=== PATIENT | female | born 1960 | race Asian ===

== ENCOUNTER 2020-09-01 | Outpatient (REF) | payer OTHER, SELFPAY ==
[2020-09-02 12:11] LABS: FIT1 NEGATIVE (NEGATIVE); FIT2 NEGATIVE (NEGATIVE)
[2020-09-02 12:12] LABS: FIT Int Ctl YES
== END 2020-09-01 00:01 | disposition home or self-care (01) ==
LOC: HO.LNP
PROVIDERS: Visit Provider Internal Medicine
DX: Z12.11 Encounter for screening for malignant neoplasm of colon (principal)
CPT/HCPCS: 82274

== ENCOUNTER 2020-09-02 07:56 | Outpatient (REF) | payer OTHER, SELFPAY ==
[2020-09-02 09:01] LABS: MANUAL DIFF FLAG NO
[2020-09-02 09:04] LABS: Basophils Absolute Auto 0.1 X10*3/uL (0.0-0.2); Basophils Percent Auto 1.8 % (0-2); Eosinophils Absolute Auto 0.4 X10*3/uL (0.0-0.4); Eosinophils Percent Auto 10.9 % (0-4); Hematocrit 38.8 % (37-47); Hemoglobin 12.9 g/dl (12.0-16.0); Imm Gran Abs Auto 0.01 X10*3/uL (0.00-0.03); Imm Gran Pct Auto 0.3 % (0.0-0.4); Lymphocytes Absolute Auto 1.7 X10*3/uL (1.2-4.9); Lymphocytes Percent Auto 44.5 % (20-40); Mean Corpuscular HGB Conc 33.2 g/dl (31.0-35.0); Mean Corpuscular Hemoglobin 29.7 pg (27.0-33.0); Mean Corpuscular Volume 89.2 fL (80-98); Mean Platelet Volume 8.6 fL (9.4-12.3); Monocytes Absolute Auto 0.4 X10*3/uL (0.1-1.2); Monocytes Percent Auto 9.6 % (2-11); Neutrophils Absolute Auto 1.3 X10*3/uL (2.0-8.3); Neutrophils Percent Auto 32.9 % (45-73); Platelet Count 310 X10*3/uL (160-400); Red Blood Count 4.35 X10*6/uL (4.20-5.50); Red Cell Distribution Width 11.9 % (11.0-16.0); White Blood Count 3.8 X10*3/uL (4.8-10.8)
[2020-09-02 09:34] LABS: Alanine Aminotransferase 24 U/L (0-31); Albumin Level 4.5 g/dL (3.5-5.0); Alkaline Phosphatase 71 U/L (39-117); Anion Gap 13 (12-20); Aspartate Amino Transferase 25 U/L (5-31); Bilirubin Total 0.9 mg/dL (0.0-1.0); Blood Urea Nitrogen 8 mg/dL (9-16); Calcium 9.5 mg/dL (8.4-10.2); Carbon Dioxide 28 mmol/L (22-29); Chloride 105 mmol/L (96-108); Cholesterol 256 mg/dL; Estimated Glomerular Filt Rate > 60; Glucose Fasting 108 mg/dL (60-99); HDL Cholesterol 52 mg/dL; LDL Cholesterol Calculated 173 mg/dl; Sodium 142 mmol/L (135-145); Total Protein 8.3 g/dL (6.5-8.0); Triglycerides 159 mg/dL
[2020-09-02 09:57] LABS: TSH reflex Free T4 1.99 uIU/mL (0.32-4.0); Vitamin D 25-OH Total 35.1 ng/mL (>30)
== END 2020-09-02 07:57 | disposition home or self-care (01) ==
LOC: HO.LAB 07:56
PROVIDERS: Visit Provider Internal Medicine
DX: Z00.01 Encounter for general adult medical examination with abnormal findings (principal); I10 Essential (primary) hypertension
CPT/HCPCS: 36415; 80053; 80061; 82306; 84443; 85025

== ENCOUNTER 2022-12-31 06:36 | Outpatient (REF) | payer OTHER, SELFPAY ==
[2022-12-31 12:12] LABS: Alanine Aminotransferase 40 U/L (0-31); Albumin Level 4.2 g/dL (3.5-5.0); Alkaline Phosphatase 67 U/L (39-117); Anion Gap 12 (12-20); Aspartate Amino Transferase 32 U/L (5-31); Bilirubin Total 0.7 mg/dL (0.0-1.0); Blood Urea Nitrogen 12 mg/dL (9-16); Calcium 9.5 mg/dL (8.4-10.2); Carbon Dioxide 26 mmol/L (22-29); Chloride 107 mmol/L (96-108); Cholesterol 240 mg/dL; Estimated Glomerular Filt Rate > 60; Glucose Fasting 143 mg/dL (60-99); HDL Cholesterol 43 mg/dL; LDL Cholesterol Calculated 161 mg/dl; Potassium 3.7 mmol/L (3.3-5.1); Sodium 141 mmol/L (135-145); Total Protein 8.3 g/dL (6.5-8.0); Triglycerides 183 mg/dL
[2022-12-31 12:13] LABS: TSH reflex Free T4 2.38 uIU/mL (0.32-4.0)
== END 2022-12-31 06:37 | disposition home or self-care (01) ==
LOC: HO.HMGCLDS 06:36
PROVIDERS: PCP Internal Medicine; Visit Provider Internal Medicine
DX: I10 Essential (primary) hypertension (principal); E78.5 Hyperlipidemia, unspecified; R73.01 Impaired fasting glucose; Z90.09 Acquired absence of other part of head and neck
CPT/HCPCS: 36415; 80053; 80061; 82306; 84443

== ENCOUNTER 2023-08-13 10:44 | Outpatient (AMB) | payer BC, SELFPAY ==
--- NOTE | 2023-08-13 11:03 | A.OFFPC_ITS ---
Vital Signs 08/13/23 11:04 Height 5 ft 2 in Weight 152 lb 4 oz BMI 27.8 BP 150/88 H Blood Pressure Location Rt brachial Position Sitting Pulse 57 Pulse Source Pulse Oximeter Pulse Oximetry (%) 98 Oxygen Delivery Method Room Air Intake Visit Reasons: ffup IFG , Lipids, Htn Intake Note: Pt is here to follow up for her HTN Allergies No Known Allergies [No Known Allergies*] Allergy (Verified 08/13/23 11:16) Medication List - Last Reconciled 08/13/23 by Michelle Barriga MD cetirizine 10 mg PO BEDTIME lisinopril 5 mg PO DAILY sodium chloride 0.65% (Saline Nasal) 1 spray intranasal BID PRN Tobacco use date assessed: 08/13/23 Dental Screening Dental Screen Date: 08/13/23 Did you have a dental visit in the last 12 months?: No Did you have a dental problem in the last 6 months where you did not have access to dental care?: No Was dental information given to patient?: No HPI ffup IFG , Lipids, Htn HPI Details 62-year-old lady with history of elevate d fasting glucose, hypertension, and hyperlipidemia, here today for follow-up. Currently taking lisinopril 5 mg once a day, blood pressure however still not at goal of less than 130/80 . States that she has been under lot of stress lately, has been overeating and has not been doing her regular exercise. Has just started walking again for exercise a week ago. [facility] Medical History (Updated 08/13/23 @ 11:49 by Michelle Barriga MD) Type 2 diabetes mellitus without complication, with no history of insulin use Shoulder pain, right Bilateral finger arthralgia Impaired fasting glucose Dyslipidemia Refused influenza vaccine Papanicolaou smear declined Colonoscopy refused Mammogram declined Allergic rhinitis Essential hypertension Annual visit for general adult medical examination with abnormal findings Surgical History History of thyroidectomy Family History Father Medical history non-contributory Mother Medical history non-contributory Brother No problems noted. Brother No problems noted. Brother No problems noted. Sister No problems noted. Sister No problems noted. Sister No problems noted. Sister No problems noted. Social History Housing: Condominium Alcohol intake: never Patient Tobacco Use Status: Never used Tobacco e-Cigarette/Vaping Use: Never Used service: No Current occupational status: employed Cognitive needs: No Hearing needs: No Vision needs: Yes Questionnaire Thrive Questionnaire Date Thrive assessed: 12/05/22 AUDIT C Alcohol Use Questionnaire (AUDIT-C) 1. How often do you have a drink containing alcohol?: Never Total Score: 0 DEEPTHI-7 AMB Questionnaire DEEPTHI-7 Date DEEPTHI - 7 assessed: 12/05/22 Source: Developed by Drs. Fernie William, Barbara Do, Sarabjit Armijo and colleagues, with an educational demar from [employer]. Review of Systems Const Denies body aches, Denies fatigue, Denies headache(s) and Denies weakness Eyes Details: Goes to [facility] for routine eye exam Reports no additional complaints ENT Denies vertigo, Denies dizziness, Denies headache(s), Denies tinnitus and Denies sore throat Card Denies chest pain, Denies lightheadedness, Denies palpitations and Denies dyspnea Resp Denies chest congestion, Denies cough, Denies dyspnea and Denies wheezing GI Denies abdominal pain, Denies change in bowel habits and Denies heartburn Reports no additional complaints Musc Reports no additional complaints Skin/Breast Denies breast swelling, Denies breast pain, Denies breast mass and Denies unusual bruising Neuro Denies vertigo, Denies dizziness, Denies headache(s) and Denies weakness Endo Denies fatigue, Denies polydipsia, Denies polyuria and Denies palpitations Aller/Immun Reports seasonal rhinorrhea and Denies wheezing Physical exam (Primary Care) Vital Signs: Last Vital Signs Pulse 57 08/13/23 11:04 BP 150/88 H 08/13/23 11:04 Pulse Ox 98 08/13/23 11:04 Oxygen Delivery Method Room Air 08/13/23 11:04 BMI result Body Mass Index 27.8 BMI Assessment/Plan discussion: High BMI High, discussed plan: lifestyle, weight reduction, dietary and physical activity Tobacco/Smoking Status: Tobacco use Status Tobacco use date assessed 08/13/23 08/13/23 11:14 Patient Tobacco Use Status Never used Tobacco 08/13/23 11:03 e-Cigarette/Vaping Use Never Used 08/13/23 11:03 Thrive Assessment: Date of Thrive Assessment Date Thrive assessed 12/05/22 08/13/23 11:03 Const General: comfortable, no acute distress, alert and awake Nutritional Appearance: overweight Orientation/consciousness: patient oriented x3 HENWI Head: Yes normocephalic General nose exam: Normal external nose present and No nasal discharge present Face and sinus: Yes sinuses nontender and Yes face symmetric Eyes General: appearance normal, both eyes and all related structures Neck Neck: Yes full ROM, Yes no lymphadenopathy and Yes supple Resp Auscultation: clear to auscultation bilaterally Cardio Rate: regular rate Rhythm: regular rhythm Heart sounds: S1 normal heart sound present and S2 normal heart sound present GI Palpation (GI): Soft to palpation, nontender, no guarding and no masses Auscultation: normal bowel sounds Skin General skin exam: no rashes or lesions noted Neuro General: patient oriented x3, gait normal, tone normal, moves all extremities, Normal light touch and pain sensation and no focal motor deficits Extrem General: Yes full ROM, Yes no joint enlargement, Yes no clubbing, cyanosis or edema, Yes no calf tenderness and Yes normal gait Results AMB Hemoglobin A1c AMB Hemoglobin A1c 6.8 % Last Edit by Kellen Quiroga CMA on 08/13/23 11: 40 Results Reviewed Results Reviewed: Laboratory Last Values Hgb A1c (Clinic) 6.8 % (4.0-6.0) H 08/13/23 11:38 Assessment and Plan Assessment & Plan (1) Type 2 diabetes mellitus without complication, with no history of insulin use: Code(s): E11.9 - Type 2 diabetes mellitus without complications Plan: Hemoglobin A1c today is at 6.8%. Patient would like to hold off on starting any medication at present time and would like to see if she can control her blood sugar through diet and exercise. Will recheck another hemoglobin A1c, lipids in 3 months. Advised to get yearly diabetes eye screening, goes to [facility] and has an appointment already scheduled later this month. Advised to get her flu vaccine, pneumonia vaccine and COVID booster, patient states that she would like to do his prior to the weekend, and would just get these from the pharmacy. (2) Dyslipidemia: Code(s): E78.5 - Hyperlipidemia, unspecified Plan: Advised to get her fasting lipid panel lab done. Last 5 beats fasting lipid panel done a year ago she showed elevated LDL cholesterol, goal is less than 100 mg/dL . Patient declines starting cholesterol medicines present time and would like to try controlling this with diet and exercise. Reinforced adherence to low-cholesterol diet and regular exercise, at least 30 minutes 3 to 4 times a week. Advised patient to make healthy food choices, eat more fruits, vegetables, whole grains, wild caught fish and low-fat dairy. Limit amount of meat and fried or fatty food products, as well as processed foods and fast foods. Follow-up scheduled with repeat fasting lipid panel in 3 months. (3) Essential hypertension: Code(s): I10 - Essential (primary) hypertension Plan: Blood pressure not at goal of less than 130/80. Increase lisinopril to 10 mg once a day in a.m.. Reinforced importance of following a low sodium diet, getting regular exercise, and lowering stress levels. (4) Colon cancer screening: Code(s): Z12.11 - Encounter for screening for malignant neoplasm of colon Plan: Declined getting colonoscopy but willing to do Cologuard testing, latter ordered Orders: Orders AMB Hemoglobin A1c Today E11.9 - Type 2 diabetes mellitus without complications Microalbumin, Random (w Creat) Today E11.9 - Type 2 diabetes mellitus without complications Referrals Cologuard Test Z12.11 - Encounter for screening for malignant neoplasm of colon, Z12.12 - Encounter for screening for malignant neoplasm of rectum Medications: Changed From lisinopril 5 mg PO DAILY 30 tabs 2RF E11.9 - Type 2 diabetes mellitus without complications, I10 - Essential (primary) hypertension To lisinopril 10 mg PO DAILY 90 tabs 1RF E11.9 - Type 2 diabetes mellitus without complications, I10 - Essential (primary) hypertension Review Flu Vaccine not done: patient reason (Patient declined) Coding Level of Care Code Est Pt Level 4 (34349) Diagnoses Type 2 diabetes mellitus without complication, with no history of insulin use E11.9 Dyslipidemia E78.5 Essential hypertension I10 Colon cancer screening Z12.11
[2023-08-13 11:04] VITALS: BP 150/88; PULSE 57; O2SAT 98; BMI 27.8
== END 2023-08-13 13:42 | disposition home or self-care (01) ==
PROVIDERS: PCP Internal Medicine; Visit Provider Internal Medicine
DX: E11.9 Type 2 diabetes mellitus without complications (principal)
CPT/HCPCS: 83036; 99214

== ENCOUNTER 2023-08-16 07:28 | Outpatient (REF) | payer BC, SELFPAY ==
[2023-08-16 11:29] LABS: Alanine Aminotransferase 20 U/L (0-31); Anion Gap 12 (12-20); Aspartate Amino Transferase 21 U/L (5-31); Blood Urea Nitrogen 15 mg/dL (9-16); Calcium 9.7 mg/dL (8.4-10.2); Carbon Dioxide 25 mmol/L (22-29); Chloride 108 mmol/L (96-108); Cholesterol 236 mg/dL (<200); Estimated Glomerular Filt Rate > 60; Glucose Fasting 106 mg/dL (60-99); HDL Cholesterol 53 mg/dL (>40); LDL Cholesterol Calculated 156 mg/dL (<100); Potassium 3.6 mmol/L (3.3-5.1); Sodium 141 mmol/L (135-145); Triglycerides 139 mg/dL (<150)
[2023-08-16 12:02] LABS: Microalbum/Creatinine Ratio Ur 65.7 ug/mg cr (<30)
== END 2023-08-16 07:29 | disposition home or self-care (01) ==
LOC: HO.HMGCLDS 07:28
PROVIDERS: PCP Internal Medicine; Visit Provider Internal Medicine
DX: I10 Essential (primary) hypertension (principal); E11.9 Type 2 diabetes mellitus without complications; E78.5 Hyperlipidemia, unspecified
CPT/HCPCS: 36415; 80048; 80061; 82043; 82570; 84450; 84460

== ENCOUNTER 2023-09-02 16:56 | Outpatient (AMB) | payer BC, SELFPAY ==
--- NOTE | 2023-09-02 16:53 | A.OFFPC_ITS ---
Intake Visit Reasons: cough from a medicaton/[phone] Intake Note: Pt is having a telehealth visit to discuss lisinopril making her have a cough Allergies lisinopril Allergy (Severe, Verified 09/02/23 17:24) Cough Medication List - Last Reconciled 09/02/23 by Michelle Barriga MD cetirizine 10 mg PO BEDTIME lisinopril 10 mg PO DAILY Tobacco use date assessed: 09/02/23 Dental Screening Dental Screen Date: 09/02/23 Did you have a dental visit in the last 12 months?: No Was dental information given to patient?: Patient declined HPI cough from a medicaton/[phone] HPI Details 62-year-old lady with hypertension, curr ently on lisinopril, here today complaining of a dry cough since she started taking the medication. She is also here for follow-up on recent labs done. Her hemoglobin A1c came back at 6.8%, with a fasting blood sugar at 106 mg/dL. Her fasting lipid panel showed an LDL cholesterol at 156 mg/dL. Patient states that she has been noncompliant with her diet, has been eating bread and rice every day and goes to [employer] all the time. She has since changed her diet, and has been eating more fruits, salads, eats only rice once a day, and has stopped eating a lot of fast foods. Has an appointment with [facility] next month for routine eye exam. [facility] Medical History (Updated 09/02/23 @ 17:23 by Michelle Barriga MD) Type 2 diabetes mellitus without complication, with no history of insulin use Shoulder pain, right Bilateral finger arthralgia Impaired fasting glucose Dyslipidemia Refused influenza vaccine Papanicolaou smear declined Colonoscopy refused Mammogram declined Allergic rhinitis Essential hypertension Annual visit for general adult medical examination with abnormal findings Surgical History History of thyroidectomy Family History Father Medical history non-contributory Mother Medical history non-contributory Brother No problems noted. Brother No problems noted. Brother No problems noted. Sister No problems noted. Sister No problems noted. Sister No problems noted. Sister No problems noted. Social History Housing: Condominium Alcohol intake: never Patient Tobacco Use Status: Never used Tobacco e-Cigarette/Vaping Use: Never Used service: No Current occupational status: employed Cognitive needs: No Hearing needs: No Vision needs: Yes Questionnaire PHQ-9 Over the last 2 weeks, how often have you been bothered by any of the following problems? 1. Little interest or pleasure in doing things: not at all 2. Feeling down, depressed, or hopeless: not at all 3. Trouble falling or staying asleep, or sleeping too much: not at all 4. Feeling tired or having little energy: not at all 5. Poor appetite or overeating: not at all 6. Feeling bad about yourself - or that you are a failure or have let yourself or your family down: not at all 7. Trouble concentrating on things, such as reading the newspaper or watching television: not at all 8. Moving or speaking so slowly that other people could have noticed. Or the opposite - being so fidgety or restless that you have been moving around a lot more than usual: not at all 9. Thoughts that you would be better off or of hurting yourself in some way: not at all Total score: 0 Depression Screening Interpretation: Negative Depression Screening Done: Yes 58484 - PHQ-9 Billing: Yes Source: Developed by Drs. Fernie William, Barbara Do, Sarabjit Armijo and colleagues, with an educational demar from [employer]. Thrive Questionnaire Date Thrive assessed: 09/02/23 I am a: Patient What is your living situation today?: I have a steady place to live Within the past 12 months, did the food you bought not last and you didn't have the money to get more?: Never true Within the past 12 months, did you worry whether your food would run out before you got money to buy more?: Never true Do you have trouble paying for medicines?: No Do you have trouble getting transportation to medical appointments?: No Do you have trouble paying your heating and electricity bill?: No Do you have trouble taking care of your child, family member or friend?: No Do you have trouble with day-to-day activities such as bathing, preparing meals, shopping, managing finances, etc.?: No Are you currently unemployed and looking for a job?: No Are you interested in more education?: No THRIVE Score: 0 AUDIT C Alcohol Use Questionnaire (AUDIT-C) 1. How often do you have a drink containing alcohol?: Never Total Score: 0 DEEPTHI-7 AMB Questionnaire DEEPTHI-7 Date DEEPTHI - 7 assessed: 09/02/23 Feeling nervous, anxious, or on edge: 0 = Not at all Not being able to stop or control worryin = Not at all Worrying too much about different things: 0 = Not at all Trouble relaxin = Not at all Being so restless that it is hard to sit still: 0 = Not at all Becoming easily annoyed or irritable: 0 = Not at all Feeling afraid as if something awful might happen: 0 = Not at all Total DEEPTHI-7 score (0-4 normal; 5-9 mild; 10-14 moderate; 15-21 severe): 0 Source: Developed by Drs. Fernie William, Barbara Do, Sarabjit Armijo and colleagues, with an educational demar from [employer]. DEEPTHI-7 Assessment Billing DEEPTHI-7 Assessment Tool: DEEPTHI-7 Assessment [id number] Review of Systems Const Denies body aches, Denies fatigue, Denies headache(s) and Denies weakness Eyes Reports no additional complaints ENT Denies dizziness and Denies headache(s) Card Denies chest pain, Denies lightheadedness, Denies palpitations and Denies dyspnea Resp Denies chest congestion and Denies dyspnea GI Denies abdominal pain, Denies change in bowel habits and Denies heartburn Reports no additional complaints Musc Reports no additional complaints Neuro Denies dizziness, Denies headache(s) and Denies weakness Endo Denies fatigue, Denies polydipsia, Denies polyuria and Denies palpitations Physical exam (Primary Care) Tobacco/Smoking Status: Tobacco use Status Tobacco use date assessed 09/02/23 09/02/23 16:55 Patient Tobacco Use Status Never used Tobacco 09/02/23 16:55 e-Cigarette/Vaping Use Never Used 09/02/23 16:55 Depression Screening Interpretation: Negative Thrive Assessment: Date of Thrive Assessment Date Thrive assessed 09/02/23 09/02/23 16:55 Telehealth Telehealth Location of provider rendering services: practice address Location of patient: address on file Patient Identification confirmed using: Name, : Yes Telehealth method: video Patient verbally consented to treatment: Yes Patient verbally consented to billing insurance company: Yes Patient informed of any privacy concerns related to visit: Yes Minutes spent on Phone/Video with Pt.: 15 Results Reviewed Results Reviewed: Laboratory Tests 08/13/23 11:38 Hgb A1c (Clinic) 6.8 H RUN: 09/02/23 [id number] 1 [facility] [address] [place] [address] Help Desk Intern: Sanket Cheek M.D. Specimen Inquiry Name: Suri Cueto Age/Sex: 62/F : 1960 Unit#: [id number] Attend Dr: Michelle Barriga MD Re08/16/23 Status: DEP REF Location: [facility] Disch: SPEC : [id number] ALETHA: 08/16/23 STATUS: COMP REQ : [id number] RECD: 08/16/23-[address]: Michelle Barriga MD COMP: 08/16/23-9 ENTERED: 08/16/23-[address]: ORDERED: Met Prof Fast, AST, ALT, Lipid Panel Test Result Flag Reference Sodium 141 135-145 mmol/L Potassium 3.6 3.3-5.1 mmol/L CL 108 96-108 mmol/L CO2 25 22-29 mmol/L Gap 12 12-20 BUN 15 9-16 mg/dL Creat 0.82 0.5-1.4 mg/dL EGFR > 60 NOTE: For -[place] Citizen individuals, multiply the result by 1.210. Chronic Kidney Disease: Estimated GFR < 60 mL/min/1.73m2 Severe Kidney Disease: Estimated GFR < 15 mL/min/1.73m2 FBS 106 H 60-99 mg/dL A fasting glucose from 100-125 mg/dl is considered impaired (pre-diabetes). CA 9.7 8.4-10.2 mg/dL AST (GOT) 21 5-31 U/L ALT (GPT) 20 0-31 U/L Triglyceride 139 <150 mg/dL Desirable Triglyceride: less than 150 mg/dL Borderline High Triglyceride 150-199 mg/dL High Triglyceride: 200-499 mg/dL Very High Triglyceride: greater than or equal to 5OO mg/dL Cholesterol 236 H <200 mg/dL Desirable Cholesterol: less than 200 mg/dL Borderline High Cholesterol: 200-239 mg/dL High Cholesterol: greater than 239 mg/dL LDL Calculated 156 H <100 mg/dL Desirable LDL: less than 100 mg/dL Near Optimal/Above Optimal LDL: 110-129 mg/dL Borderline High LDL: 130-159 mg/dL High LDL: 160-189 mg/dL Very High LDL: greater than or equal to 190 mg/dL HDL 53 >40 mg/dL Desirable HDL: greater than 40 mg/dL Note: This HDL assay may give artificially low results in patients with liver disease. Assessment and Plan Assessment & Plan (1) Type 2 diabetes mellitus without complication, with no history of insulin use: Code(s): E11.9 - Type 2 diabetes mellitus without complications Plan: She has diabetes mellitus uncontrolled with a hemoglobin A1c at 6.8%. Patient does not want to start medications at present, and would like to try improving glucose levels through diet and exercise. Has an appointment for her routine eye exam / diabetes retinopathy screening with [facility] next month. Reminded to get her COVID and flu vaccine as well as her pneumonia vaccination. Will repeat another hemoglobin A1c and basic metabolic panel in 3 months (2) Essential hypertension: Code(s): I10 - Essential (primary) hypertension Plan: Developed severe dry cough with lisinopril, changed to losartan 25 mg per tablet to take once a day in a.m.. Reinforced importance of following a low-salt diet and getting regular exercise. Goal blood pressure less than 130/90 . (3) Dyslipidemia: Code(s): E78.5 - Hyperlipidemia, unspecified Plan: LDL cholesterol elevated on last fasting labs done. She does not want to start any medication at present time , and would like to see if she can improve her cholesterol levels through diet and exercise. She already has met with a diversity intern has received dietary guidance to help improve her cholesterol levels peer Will repeat another fasting lipid panel in 3 month Orders: Orders Lipid Panel 11/03/23 E11.9 - Type 2 diabetes mellitus without complications, E78.5 - Hyperlipidemia, unspecified, I10 - Essential (primary) hypertension Comprehensive [place]. Panel Fast 11/03/23 E11.9 - Type 2 diabetes mellitus without complications, E78.5 - Hyperlipidemia, unspecified, I10 - Essential (primary) hypertension Microalbumin, Random (w Creat) 11/03/23 E11.9 - Type 2 diabetes mellitus without complications, E78.5 - Hyperlipidemia, unspecified, I10 - Essential (primary) hypertension Hemoglobin A1c 11/03/23 E11.9 - Type 2 diabetes mellitus without complications, E78.5 - Hyperlipidemia, unspecified, I10 - Essential (primary) hypertension Medications: New losartan 25 mg PO DAILY 90 tabs 1RF Discontinued lisinopril Discontinued Reason: Doctor's Order 10 mg PO DAILY 90 tabs 1RF E11.9 - Type 2 diabetes mellitus without complications, I10 - Essential (primary) hypertension Coding Level of Care Code Tele Est Pt Level 3 (37034) Diagnoses Type 2 diabetes mellitus without complication, with no history of insulin use E11.9 Essential hypertension I10 Dyslipidemia E78.5 Additional Codes DEEPTHI-7 Assessment Billing - DEEPTHI-7 Assessment Tool: DEEPTHI-7 Assessment [id number] ([id number])
== END 2023-09-02 17:25 | disposition home or self-care (01) ==
PROVIDERS: PCP Internal Medicine; Visit Provider Internal Medicine
DX: E11.9 Type 2 diabetes mellitus without complications (principal); I10 Essential (primary) hypertension; E78.5 Hyperlipidemia, unspecified
CPT/HCPCS: 99213

== ENCOUNTER 2024-01-13 06:30 | Outpatient (REF) | payer BC, SELFPAY ==
[2024-01-13 10:58] LABS: Estimated Average Glucose 134 mg/dL; Hemoglobin A1c % 6.3 % (<6.0)
[2024-01-13 11:09] LABS: Creatinine Urine 101.47 mg/dL; Microalbum/Creatinine Ratio Ur 26.6 ug/mg cr (<30)
[2024-01-13 11:32] LABS: Alanine Aminotransferase 17 U/L (0-31); Albumin Level 4.4 g/dL (3.5-5.0); Alkaline Phosphatase 79 U/L (39-117); Anion Gap 11 (12-20); Aspartate Amino Transferase 22 U/L (5-31); Bilirubin Total 0.5 mg/dL (0.0-1.0); Calcium 9.8 mg/dL (8.4-10.2); Carbon Dioxide 27 mmol/L (22-29); Chloride 107 mmol/L (96-108); Cholesterol 240 mg/dL (<200); Estimated Glomerular Filt Rate > 60; Glucose Fasting 118 mg/dL (60-99); HDL Cholesterol 49 mg/dL (>40); LDL Cholesterol Calculated 160 mg/dL (<100); Potassium 4.1 mmol/L (3.3-5.1); Sodium 141 mmol/L (135-145); Total Protein 8.6 g/dL (6.5-8.0); Triglycerides 155 mg/dL (<150)
[2024-01-13 11:50] LABS: Blood Urea Nitrogen 14 mg/dL (9-16)
== END 2024-01-13 06:31 | disposition home or self-care (01) ==
LOC: HO.HMGCLDS 06:30
PROVIDERS: PCP Internal Medicine; Visit Provider Internal Medicine
DX: E11.9 Type 2 diabetes mellitus without complications (principal); I10 Essential (primary) hypertension; E78.5 Hyperlipidemia, unspecified
CPT/HCPCS: 36415; 80053; 80061; 82043; 82570; 83036

== ENCOUNTER 2024-01-19 08:48 | Outpatient (AMB) | payer BC, SELFPAY ==
--- NOTE | 2024-01-19 09:44 | MHC.PC.OV ---
Vital Signs 01/19/24 09:45 Height 5 ft 2 in Weight 150 lb BMI 27.4 BP 130/70 Blood Pressure Location Rt brachial Position Sitting Pulse 65 Pulse Source Pulse Oximeter Pulse Oximetry (%) 98 Oxygen Delivery Method Room Air Intake Visit Reasons: hipertension Intake Note: Pt is here today to f/u HTN Allergies lisinopril Allergy (Severe, Verified 01/19/24 10:24) Cough Medication List - Last Reconciled 01/19/24 by Michelle Barriga MD losartan 25 mg PO DAILY Tobacco use date assessed: 01/19/24 Dental Screening Dental Screen Date: 01/19/24 Did you have a dental visit in the last 12 months?: Yes Did you have a dental problem in the last 6 months where you did not have access to dental care?: Yes Was dental information given to patient?: Patient has dentist HPI hipertension HPI Details 63-year-old lady with hypertension, diabetes mellitus, here today for follow-up. She has been taking losartan 25 mg 1 tablet daily, blood pressure well controlled, denies chest pain, chest pressure, no headaches shortness of breath or palpitations reported Controlling diabetes through diet and exercise, latest hemoglobin A1c is now lower at 6.3% compared to last check. Has been compliant with recommended diet and tries to exercise regularly. Latest fasting labs however showed elevated LDL cholesterol and total cholesterol [facility] Medical History (Updated 01/19/24 @ 10:27 by Michelle Barriga MD) Type 2 diabetes mellitus without complication, with no history of insulin use Dyslipidemia Refused influenza vaccine Papanicolaou smear declined Colonoscopy refused Mammogram declined Allergic rhinitis Essential hypertension Surgical History History of thyroidectomy Family History Father Medical history non-contributory Mother Medical history non-contributory Brother No problems noted. Brother No problems noted. Brother No problems noted. Sister No problems noted. Sister No problems noted. Sister No problems noted. Sister No problems noted. Social History Housing: Condominium Alcohol intake: never Patient Tobacco Use Status: Never used Tobacco e-Cigarette/Vaping Use: Never Used service: No Current occupational status: employed Cognitive needs: No Hearing needs: No Vision needs: Yes Questionnaire Thrive Questionnaire Date Thrive assessed: 09/02/23 DEEPTHI-7 AMB Questionnaire DEEPTHI-7 Date DEEPTHI - 7 assessed: 09/02/23 Source: Developed by Drs. Fernie William, Barbara Do, Sarabjit Armijo and colleagues, with an educational demar from [employer]. Review of Systems Const Denies body aches, Denies fatigue, Denies headache(s) and Denies weakness Eyes Reports no additional complaints ENT Denies dizziness and Denies headache(s) Card Denies chest pain, Denies lightheadedness, Denies palpitations and Denies dyspnea Resp Denies chest congestion and Denies dyspnea GI Denies abdominal pain, Denies change in bowel habits and Denies heartburn Reports no additional complaints Musc Reports no additional complaints Neuro Denies dizziness, Denies headache(s) and Denies weakness Endo Denies fatigue, Denies polydipsia, Denies polyuria and Denies palpitations Physical exam (Primary Care) Vital Signs: Last Vital Signs Pulse 65 01/19/24 09:45 BP 130/70 01/19/24 09:45 Pulse Ox 98 01/19/24 09:45 Oxygen Delivery Method Room Air 01/19/24 09:45 BMI result Body Mass Index 27.4 BMI Assessment/Plan discussion: High BMI High, discussed plan: lifestyle, weight reduction, dietary and physical activity Tobacco/Smoking Status: Tobacco use Status Tobacco use date assessed 01/19/24 01/19/24 09:50 Patient Tobacco Use Status Never used Tobacco 01/19/24 09:46 e-Cigarette/Vaping Use Never Used 01/19/24 09:46 Thrive Assessment: Date of Thrive Assessment Date Thrive assessed 09/02/23 01/19/24 09:46 Const General: comfortable, no acute distress, alert and awake Nutritional Appearance: overweight Orientation/consciousness: patient oriented x3 HENMT Head: Yes normocephalic General nose exam: Normal external nose present and No nasal discharge present Face and sinus: Yes sinuses nontender and Yes face symmetric Eyes General: appearance normal, both eyes and all related structures Neck Neck: Yes full ROM, Yes no lymphadenopathy and Yes supple Resp Auscultation: clear to auscultation bilaterally Cardio Rate: regular rate Rhythm: regular rhythm Heart sounds: S1 normal heart sound present and S2 normal heart sound present GI Palpation (GI): Soft to palpation, nontender, no guarding and no masses Auscultation: normal bowel sounds Skin General skin exam: no rashes or lesions noted Neuro General: patient oriented x3, gait normal, tone normal, moves all extremities, Normal light touch and pain sensation and no focal motor deficits Extrem General: Yes full ROM, Yes no joint enlargement, Yes no clubbing, cyanosis or edema, Yes no calf tenderness and Yes normal gait Results Reviewed Results Reviewed: Name: Suri Cueto Age/Sex: 63/F : 1960 Unit#: [id number] Attend Dr: Michelle Barriga MD Re01/13/24 Status: DEP REF Location: [facility] Disch: SPEC : [id number] ALETHA: 01/13/24 STATUS: COMP REQ : [id number] RECD: 01/13/24-[address]: Michelle Barriga MD COMP: 01/13/24-1131 ENTERED: 01/13/24-[address]: ORDERED: CMP Fast, Lipid Panel Test Result Flag Reference Sodium 141 135-145 mmol/L Potassium 4.1 3.3-5.1 mmol/L CL 107 96-108 mmol/L CO2 27 22-29 mmol/L Gap 11 L 12-20 BUN 14 9-16 mg/dL Creat 0.81 0.5-1.4 mg/dL EGFR > 60 NOTE: For -[place] individuals, multiply the result by 1.210. Chronic Kidney Disease: Estimated GFR < 60 mL/min/1.73m2 Severe Kidney Disease: Estimated GFR < 15 mL/min/1.73m2 FBS 118 H 60-99 mg/dL A fasting glucose from 100-125 mg/dl is considered impaired (pre-diabetes). CA 9.8 8.4-10.2 mg/dL Total Bili 0.5 0.0-1.0 mg/dL AST (GOT) 22 5-31 U/L ALT (GPT) 17 0-31 U/L Protein, Total 8.6 H 6.5-8.0 g/dL Alb 4.4 3.5-5.0 g/dL Triglyceride 155 H <150 mg/dL Desirable Triglyceride: less than 150 mg/dL Borderline High Triglyceride 150-199 mg/dL High Triglyceride: 200-499 mg/dL Very High Triglyceride: greater than or equal to 5OO mg/dL Cholesterol 240 H <200 mg/dL Desirable Cholesterol: less than 200 mg/dL Borderline High Cholesterol: 200-239 mg/dL High Cholesterol: greater than 239 mg/dL LDL Calculated 160 H <100 mg/dL Desirable LDL: less than 100 mg/dL Near Optimal/Above Optimal LDL: 110-129 mg/dL Borderline High LDL: 130-159 mg/dL High LDL: 160-189 mg/dL Very High LDL: greater than or equal to 190 mg/dL HDL 49 >40 mg/dL Desirable HDL: greater than 40 mg/dL Note: This HDL assay may give artificially low results in patients with liver disease. Alk Phos 79 39-117 U/L Assessment and Plan Assessment & Plan (1) Dyslipidemia: Code(s): E78.5 - Hyperlipidemia, unspecified Plan: Latest LDL cholesterol was at 160 mg/dL with an HDL at 49 and triglycerides 155 with total cholesterol 240 mg/dL. Patient does not want to start any medication at this time, would like to try lowering cholesterol levels through lifestyle change, diet and exercise. Will repeat another fasting lipid panel in 05/23/2024. (2) Type 2 diabetes mellitus without complication, with no history of insulin use: Code(s): E11.9 - Type 2 diabetes mellitus without complications Plan: Recent lab results reviewed with patient, with sugar and hemoglobin A1c stable and at goal. Reinforced diabetic diet and regular exercise with patient. Counseled regarding importance of yearly diabetes retinopathy screening. Patient advised to inspect feet daily, for any signs of injury, callus or infection. Compliance with diet and regular exercise again stressed. Blood pressure goal is less than 130/80, goal LDL is less than 100 and goal hemoglobin A1c is less than 7% follow-up appointment made in-4-months, after fasting labs done. (3) Essential hypertension: Code(s): I10 - Essential (primary) hypertension Plan: Blood pressure at goal of less than 130/80. Continue losartan 25 mg once a day in a.m.. Reinforced importance of following a low sodium diet, getting regular exercise, and lowering stress levels. Orders: Orders Hemoglobin A1c 05/04/24 E11.9 - Type 2 diabetes mellitus without complications, E78.5 - Hyperlipidemia, unspecified, I10 - Essential (primary) hypertension Alanine Aminotransferase 05/04/24 E11.9 - Type 2 diabetes mellitus without complications, E78.5 - Hyperlipidemia, unspecified, I10 - Essential (primary) hypertension Aspartate Amino Transferase 05/04/24 E11.9 - Type 2 diabetes mellitus without complications, E78.5 - Hyperlipidemia, unspecified, I10 - Essential (primary) hypertension Basic Metabolic Panel Fasting 05/04/24 E11.9 - Type 2 diabetes mellitus without complications, E78.5 - Hyperlipidemia, unspecified, I10 - Essential (primary) hypertension Lipid Panel 05/04/24 E11.9 - Type 2 diabetes mellitus without complications, E78.5 - Hyperlipidemia, unspecified, I10 - Essential (primary) hypertension Coding Level of Care Code Est Pt Level 4 (46824) Complex EM visit Add On G2211 Diagnoses Dyslipidemia E78.5 Type 2 diabetes mellitus without complication, with no history of insulin use E11.9 Essential hypertension I10
[2024-01-19 09:45] VITALS: BP 130/70; PULSE 65; O2SAT 98; BMI 27.4
== END 2024-01-19 10:52 | disposition home or self-care (01) ==
PROVIDERS: PCP Internal Medicine; Visit Provider Internal Medicine
DX: E78.5 Hyperlipidemia, unspecified (principal); E11.9 Type 2 diabetes mellitus without complications; I10 Essential (primary) hypertension
CPT/HCPCS: 99214

== ENCOUNTER 2024-05-13 06:51 | Outpatient (REF) | payer BC, SELFPAY ==
[2024-05-13 10:16] LABS: Estimated Average Glucose 134 mg/dL; Hemoglobin A1C 152.4391 umol/L; Hemoglobin A1c % 6.3 % (<6.0); Total Hemoglobin (HGBA1C) 3394.5586 umol/L
[2024-05-13 10:45] LABS: Alanine Aminotransferase 24 U/L (0-31); Anion Gap 13 (12-20); Aspartate Amino Transferase 23 U/L (5-31); Blood Urea Nitrogen 15 mg/dL (9-16); Calcium 9.7 mg/dL (8.4-10.2); Carbon Dioxide 24 mmol/L (22-29); Chloride 107 mmol/L (96-108); Cholesterol 212 mg/dL (<200); Estimated Glomerular Filt Rate > 60; Glucose Fasting 110 mg/dL (60-99); HDL Cholesterol 52 mg/dL (>40); LDL Cholesterol Calculated 128 mg/dL (<100); Potassium 3.9 mmol/L (3.3-5.1); Sodium 140 mmol/L (135-145); Triglycerides 160 mg/dL (<150)
== END 2024-05-13 06:52 | disposition home or self-care (01) ==
LOC: HO.HMGCLDS 06:51
PROVIDERS: PCP Internal Medicine; Visit Provider Internal Medicine
DX: E78.5 Hyperlipidemia, unspecified (principal); E11.9 Type 2 diabetes mellitus without complications; I10 Essential (primary) hypertension
CPT/HCPCS: 36415; 80048; 80061; 83036; 84450; 84460

== ENCOUNTER 2024-05-17 11:25 | Outpatient (AMB) | payer BC, SELFPAY ==
[2024-05-17 11:54] VITALS: BP 118/62; PULSE 69; O2SAT 97; BMI 28.3
--- NOTE | 2024-05-17 11:54 | A.OFFPC_ITS ---
Vital Signs 05/17/24 11:54 Height 5 ft 2 in Weight 155 lb BMI 28.3 BP 118/62 Blood Pressure Location Lt brachial Position Sitting Pulse 69 Pulse Source Pulse Oximeter Pulse Oximetry (%) 97 Oxygen Delivery Method Room Air Intake Visit Reasons: 4M F/U DM HTN Lipids Labs Intake Note: Pt is here today for her 4mo. f/u Allergies lisinopril Allergy (Severe, Verified 05/17/24 12:04) Cough Medication List - Last Reconciled 05/17/24 by Michelle Barriga MD losartan 25 mg PO DAILY Tobacco use date assessed: 05/17/24 Dental Screening Dental Screen Date: 01/19/24 Did you have a dental visit in the last 12 months?: Yes Did you have a dental problem in the last 6 months where you did not have access to dental care?: Yes Was dental information given to patient?: Patient has dentist HPI 4M F/U DM HTN Lipids Labs HPI Details 63-year-old lady with diabetes mellitus, diet controlled, hypertension and hyperlipidemia, here today for follow-up. Currently on losartan 50 mg once a day, with blood pressure stable and controlled on present treatment. Recent fasting labs showed hemoglobin A1c at goal at 6.3%, but fasting lipids showed higher LDL cholesterol as compared to last check. She has been trying to follow recommended diet but admits to not getting any regular exercise. [facility] Medical History Type 2 diabetes mellitus without complication, with no history of insulin use Dyslipidemia Refused influenza vaccine Papanicolaou smear declined Colonoscopy refused Mammogram declined Allergic rhinitis Essential hypertension Surgical History History of thyroidectomy Family History Father Medical history non-contributory Mother Medical history non-contributory Brother No problems noted. Brother No problems noted. Brother No problems noted. Sister No problems noted. Sister No problems noted. Sister No problems noted. Sister No problems noted. Social History Housing: Condominium Alcohol intake: never Patient Tobacco Use Status: Never used Tobacco e-Cigarette/Vaping Use: Never Used service: No Current occupational status: employed Cognitive needs: No Hearing needs: No Vision needs: Yes Questionnaire Thrive Questionnaire Date Thrive assessed: 05/14/24 I am a: Patient What is your living situation today?: I have a steady place to live Within the past 12 months, did the food you bought not last and you didn't have the money to get more?: I choose not to answer this question Within the past 12 months, did you worry whether your food would run out before you got money to buy more?: I choose not to answer this question Do you have trouble paying for medicines?: No Do you have trouble getting transportation to medical appointments?: No Do you have trouble paying your heating and electricity bill?: No Do you have trouble taking care of your child, family member or friend?: No Do you have trouble with day-to-day activities such as bathing, preparing meals, shopping, managing finances, etc.?: No Are you interested in more education?: No Please select the resources that you would like help with: None Currently or been in a relationship where the following occur: No concerns reported THRIVE Score: 0 AUDIT C Alcohol Use Questionnaire (AUDIT-C) 1. How often do you have a drink containing alcohol?: Never 3. How often do you have six or more drinks on one occasion?: Never Total Score: 0 DEEPTHI-7 AMB Questionnaire DEEPTHI-7 Date DEEPTHI - 7 assessed: 09/02/23 Feeling nervous, anxious, or on edge: 0 = Not at all Not being able to stop or control worryin = Not at all Worrying too much about different things: 0 = Not at all Trouble relaxin = Not at all Being so restless that it is hard to sit still: 0 = Not at all Becoming easily annoyed or irritable: 0 = Not at all Feeling afraid as if something awful might happen: 0 = Not at all Total DEEPTHI-7 score (0-4 normal; 5-9 mild; 10-14 moderate; 15-21 severe): 0 Source: Developed by Drs. Fernie William, Barbara Do, Sarabjit Armijo and colleagues, with an educational demar from [employer]. Review of Systems Const Denies body aches, Denies fatigue, Denies headache(s) and Denies weakness Eyes Reports no additional complaints ENT Denies dizziness and Denies headache(s) Card Denies chest pain, Denies lightheadedness, Denies palpitations and Denies dyspnea Resp Denies chest congestion and Denies dyspnea GI Denies abdominal pain, Denies change in bowel habits and Denies heartburn Reports no additional complaints Musc Reports no additional complaints Neuro Denies dizziness, Denies headache(s) and Denies weakness Endo Denies fatigue, Denies polydipsia, Denies polyuria and Denies palpitations Aubrey/Lymph Reports no additional complaints Physical exam (Primary Care) Vital Signs: Last Vital Signs Pulse 69 05/17/24 11:54 BP 118/62 05/17/24 11:54 Pulse Ox 97 05/17/24 11:54 Oxygen Delivery Method Room Air 05/17/24 11:54 BMI result Body Mass Index 28.3 Tobacco/Smoking Status: Tobacco use Status Tobacco use date assessed 05/17/24 05/17/24 11:57 Patient Tobacco Use Status Never used Tobacco 05/17/24 11:57 e-Cigarette/Vaping Use Never Used 05/17/24 11:57 Thrive Assessment: Date of Thrive Assessment Date Thrive assessed 05/14/24 05/17/24 11:57 Currently or been in a relationship where the following occur: No concerns r eported Const General: comfortable, no acute distress, alert and awake Nutritional Appearance: overweight Orientation/consciousness: patient oriented x3 [facility] Head: Yes normocephalic General nose exam: Normal external nose present and No nasal discharge present Face and sinus: Yes sinuses nontender and Yes face symmetric Eyes General: appearance normal, both eyes and all related structures Neck Neck: Yes full ROM, Yes no lymphadenopathy and Yes supple Resp Auscultation: clear to auscultation bilaterally Cardio Rate: regular rate Rhythm: regular rhythm Heart sounds: S1 normal heart sound present and S2 normal heart sound present GI Palpation (GI): Soft to palpation, nontender, no guarding and no masses Auscultation: normal bowel sounds Skin General skin exam: no rashes or lesions noted Neuro General: patient oriented x3, gait normal, tone normal, moves all extremities, Normal light touch and pain sensation and no focal motor deficits Extrem General: Yes full ROM, Yes no joint enlargement, Yes no clubbing, cyanosis or edema, Yes no calf tenderness and Yes normal gait Office Procedures Flu Questionnaire Does the patient have a severe egg allergy?: No Does the patient have severe life threatening allergies?: No Does the patient have a fever or illness today?: No Has the patient ever had Guillain-Empire Syndrome?: No Has the patient ever had any past reaction to a flu shot?: No Immunizations Fluarix Triv [id number] (PF) 45 mcg (15 mcg x 3)/0.5 mL IM syringe Performing Provider: Michelle Barriga MD Performing Location: [facility] Administered by: Leela Thakur CMA on 05/17/24 12:03 Dose Route Admin Location Dispensed Lot Number Expiration Date [facility] Apartment Groundskeeper 0.5 mL IM Right Deltoid 0.5 mL [id number] 05/17/24 [id number] [email or web address] VIS Given Date VIS Provided VIS Publication Date 05/17/24 Single Vaccine 21 Eligibility Eligibility Date Funding Source Not [facility] Eligible 05/17/24 Private Results Reviewed Results Reviewed: Name: Suri Cueto Age/Sex: 63/F : 1960 Unit#: [id number] Attend Dr: Michelle Barriga MD Re05/13/24 Status: DEP REF Location: [facility] Disch: SPEC : [id number] ALETHA: 05/13/24 STATUS: COMP REQ : [id number] RECD: 05/13/[address]: Michelle Barriga MD COMP: 05/13/24 ENTERED: 05/13/24 [facility] DR: ORDERED: Met Prof Fast, AST, ALT, Lipid Panel Test Result Flag Reference Sodium 140 135-145 mmol/L Potassium 3.9 3.3-5.1 mmol/L CL 107 96-108 mmol/L CO2 24 22-29 mmol/L Gap 13 12-20 BUN 15 9-16 mg/dL Creat 0.86 0.5-1.4 mg/dL EGFR > 60 NOTE: For -[place] individuals, multiply the result by 1.210. Chronic Kidney Disease: Estimated GFR < 60 mL/min/1.73m2 Severe Kidney Disease: Estimated GFR < 15 mL/min/1.73m2 FBS 110 H 60-99 mg/dL A fasting glucose from 100-125 mg/dl is considered impaired (pre-diabetes). CA 9.7 8.4-10.2 mg/dL AST (GOT) 23 5-31 U/L ALT (GPT) 24 0-31 U/L Triglyceride 160 H <150 mg/dL Desirable Triglyceride: less than 150 mg/dL Borderline High Triglyceride 150-199 mg/dL High Triglyceride: 200-499 mg/dL Very High Triglyceride: greater than or equal to 5OO mg/dL Cholesterol 212 H <200 mg/dL Desirable Cholesterol: less than 200 mg/dL Borderline High Cholesterol: 200-239 mg/dL High Cholesterol: greater than 239 mg/dL LDL Calculated 128 H <100 mg/dL Desirable LDL: less than 100 mg/dL Near Optimal/Above Optimal LDL: 110-129 mg/dL Borderline High LDL: 130-159 mg/dL High LDL: 160-189 mg/dL Very High LDL: greater than or equal to 190 mg/dL HDL 52 >40 mg/dL Desirable HDL: greater than 40 mg/dL Note: This HDL assay may give artificially low results in patients with liver disease. Laboratory Tests 01/13/24 05/13/24 06:34 06:55 Estimat Average Glucose 134 134 Hemoglobin A1c % 6.3 H 6.3 H Urine Creatinine 101.47 Urine Microalbumin 27.0 Microalb/Creat Ratio 26.6 Coding Level of Care Code Est Pt Level 4 (99213) Complex EM visit Add On G2211 Diagnoses Type 2 diabetes mellitus without complication, with no history of insulin use E11.9 Dyslipidemia E78.5 Essential hypertension I10 Assessment & Plan Assessment & Plan (1) Type 2 diabetes mellitus without complication, with no history of insulin use: Code(s): E11.9 - Type 2 diabetes mellitus without complications Category: Medical Plan: Recent lab results reviewed with patient, with sugar and hemoglobin A1c stable and at goal . Reinforced diabetic diet and regular exercise with patient. Counseled regarding importance of yearly diabetes retinopathy screening. Patient advised to inspect feet daily, for any signs of injury, callus or infection. Compliance with diet and regular exercise again stressed. Blood pressure goal is less than 130/80, goal LDL is less than 100 and goal hemoglobin A1c is less than 7% (2) Dyslipidemia: Code(s): E78.5 - Hyperlipidemia, unspecified Category: Medical Plan: Reviewed recent fasting lipid profile with patient with LDL cholesterol level not at goal of less than 100 mg/dL patient does not want to start any medication to help lower cholesterol at this time, and would like to try lowering it again through lifestyle changes. Advised to make healthy food choices, eat more fruits, vegetables, whole grains, wild caught fish and low-fat dairy. Limit amount of meat and fried or fatty food products, as well as processed foods and fast foods. Follow-up scheduled with repeat fasting lipid panel in 4 months. (3) Essential hypertension: Code(s): I10 - Essential (primary) hypertension Category: Medical Plan: Blood pressure at goal of less than 130/80. Continue with losartan 50 mg daily. Reinforced importance of following a low sodium diet, getting regular exercise, and lowering stress levels. Orders: Orders Influenza [id number] Immunization 05/17/24 Z23 - Encounter for immunization Aspartate Amino Transferase 09/04/24 E11.9 - Type 2 diabetes mellitus without complications, E78.5 - Hyperlipidemia, unspecified, I10 - Essential (primary) hypertension Alanine Aminotransferase 09/04/24 E11.9 - Type 2 diabetes mellitus without complications, E78.5 - Hyperlipidemia, unspecified, I10 - Essential (primary) hypertension Hemoglobin A1c 09/04/24 E11.9 - Type 2 diabetes mellitus without complications, E78.5 - Hyperlipidemia, unspecified, I10 - Essential (primary) hypertension Lipid Panel 09/04/24 E11.9 - Type 2 diabetes mellitus without complications, E78.5 - Hyperlipidemia, unspecified, I10 - Essential (primary) hypertension Microalbumin, Random (w Creat) 09/04/24 E11.9 - Type 2 diabetes mellitus without complications, E78.5 - Hyperlipidemia, unspecified, I10 - Essential (primary) hypertension Thyroid Stimulating Hormone 09/04/24 E89.0 - Postprocedural hypothyroidism Free T4 (Free Thyroxine) 09/04/24 E89.0 - Postprocedural hypothyroidism Basic Metabolic Panel Fasting 09/04/24 E11.9 - Type 2 diabetes mellitus without complications, E78.5 - Hyperlipidemia, unspecified, I10 - Essential (primary) hypertension
== END 2024-05-17 12:21 | disposition home or self-care (01) ==
PROVIDERS: PCP Internal Medicine; Visit Provider Internal Medicine
DX: E11.69 Type 2 diabetes mellitus with other specified complication (principal); E78.5 Hyperlipidemia, unspecified; I10 Essential (primary) hypertension

== ENCOUNTER → 2024-05-17 11:25 | Outpatient (BNVA) | payer BC, SELFPAY | PROVIDERS: PCP Internal Medicine; Visit Provider Internal Medicine | DX: E11.9 Type 2 diabetes mellitus without complications (principal); E78.5 Hyperlipidemia, unspecified; I10 Essential (primary) hypertension; Z79.899 Other long term (current) drug therapy; Z23 Encounter for immunization | CPT/HCPCS: 90471; 90656 ==

== ENCOUNTER 2024-09-20 06:16 | Outpatient (REF) | payer BC, SELFPAY ==
[2024-09-20 10:36] LABS: Estimated Average Glucose 140 mg/dL; Hemoglobin A1c % 6.5 % (<6.0); Total Hemoglobin (HGBA1C) 3255.4449 umol/L
[2024-09-20 10:44] LABS: Alanine Aminotransferase 23 U/L (0-31); Anion Gap 11 (12-20); Aspartate Amino Transferase 32 U/L (5-31); Blood Urea Nitrogen 13 mg/dL (9-16); Carbon Dioxide 24 mmol/L (22-29); Chloride 108 mmol/L (96-108); Cholesterol 202 mg/dL (<200); Estimated Glomerular Filt Rate > 60; Glucose Fasting 115 mg/dL (60-99); HDL Cholesterol 44 mg/dL (>40); LDL Cholesterol Calculated 115 mg/dL (<100); Potassium 3.7 mmol/L (3.3-5.1); Sodium 139 mmol/L (135-145); Triglycerides 217 mg/dL (<150)
[2024-09-20 10:59] LABS: Free T4 (Free Thyroxine) 0.92 ng/dL (0.71-1.85); Thyroid Stimulating Hormone 2.53 uIU/mL (0.32-4.0)
[2024-09-20 11:00] LABS: Creatinine Urine 76.41 mg/dL; Microalbum/Creatinine Ratio Ur 43.1 ug/mg cr (<30)
== END 2024-09-20 06:17 | disposition home or self-care (01) ==
LOC: HO.HMGCLDS 06:16
PROVIDERS: PCP Internal Medicine; Visit Provider Internal Medicine
DX: E11.9 Type 2 diabetes mellitus without complications (principal); E78.5 Hyperlipidemia, unspecified; I10 Essential (primary) hypertension; E89.0 Postprocedural hypothyroidism
CPT/HCPCS: 36415; 80048; 80061; 82043; 82570; 83036; 84439; 84443; 84450; 84460

== ENCOUNTER 2024-10-12 08:09 | Outpatient (AMB) | payer BC, SELFPAY ==
[2024-10-12 08:12] VITALS: BP 140/70; PULSE 73; RESP 15; TEMP 36.7; O2SAT 99; BMI 29.1
--- NOTE | 2024-10-12 08:12 | MHC.PC.OV ---
Vital Signs 10/12/24 08:12 Height 5 ft 2 in Weight 159 lb BMI 29.1 BP 140/70 H Blood Pressure Location Rt brachial Position Sitting Respiration 15 Pulse 73 Pulse Source Pulse Oximeter Temp 98.0 F Temp Source Oral Pulse Oximetry (%) 99 Oxygen Delivery Method Room Air Intake Visit Reasons: 4 months f/up Intake Note: Pt is here today for her 4mo. f/u Allergies lisinopril Allergy (Severe, Verified 10/12/24 08:34) Cough Medication List - Last Reconciled 10/12/24 by Michelle Barriga MD losartan 25 mg PO DAILY Tobacco use date assessed: 10/12/24 Dental Screening Dental Screen Date: 10/12/24 Did you have a dental visit in the last 12 months?: Yes Did you have a dental problem in the last 6 months where you did not have access to dental care?: No Was dental information given to patient?: Patient has dentist HPI 4 months f/up HPI Details 64-year-old lady with history of prediabetes, hypertension, hyperlipidemia, here today for follow-up. She has been following recommended diet but has not been doing any regular exercise. His fasting labs done showed hemoglobin A1c now at 6.5%, with elevated triglycerides and LDL cholesterol. Elevated urine microalbuminuria noted as well. Blood pressure also is elevated, in the hypertensive range. She denies any chest pain, no headache or shortness of breath, no palpitations, no polyuria polydipsia reported. [facility] Medical History Type 2 diabetes mellitus without complication, with no history of insulin use Dyslipidemia Refused influenza vaccine Papanicolaou smear declined Colonoscopy refused Mammogram declined Allergic rhinitis Essential hypertension Surgical History History of thyroidectomy Family History Father Medical history non-contributory Mother Medical history non-contributory Brother No problems noted. Brother No problems noted. Brother No problems noted. Sister No problems noted. Sister No problems noted. Sister No problems noted. Sister No problems noted. Social History Housing: Condominium Alcohol intake: never Patient Tobacco Use Status: Never used Tobacco e-Cigarette/Vaping Use: Never Used service: No Current occupational status: employed Cognitive needs: No Hearing needs: No Vision needs: Yes Questionnaire PHQ-9 Over the last 2 weeks, how often have you been bothered by any of the following problems? 1. Little interest or pleasure in doing things: not at all 2. Feeling down, depressed, or hopeless: not at all 3. Trouble falling or staying asleep, or sleeping too much: not at all 4. Feeling tired or having little energy: not at all 5. Poor appetite or overeating: not at all 6. Feeling bad about yourself - or that you are a failure or have let yourself or your family down: not at all 7. Trouble concentrating on things, such as reading the newspaper or watching television: not at all 8. Moving or speaking so slowly that other people could have noticed. Or the opposite - being so fidgety or restless that you have been moving around a lot more than usual: not at all 9. Thoughts that you would be better off or of hurting yourself in some way: not at all Total score: 0 Depression Screening Interpretation: Negative Depression Screening Done: Yes 94948 - PHQ-9 Billing: Yes Source: Developed by Drs. Fernie William, Barbara Do, Sarabjit Armijo and colleagues, with an educational demar from [employer]. Thrive Questionnaire Date Thrive assessed: 10/12/24 I am a: Patient What is your living situation today?: I choose not to answer this question Within the past 12 months, did the food you bought not last and you didn't have the money to get more?: I choose not to answer this question Within the past 12 months, did you worry whether your food would run out before you got money to buy more?: I choose not to answer this question Do you have trouble paying for medicines?: No Do you have trouble getting transportation to medical appointments?: No Do you have trouble paying your heating and electricity bill?: I choose not to answer this question Do you have trouble taking care of your child, family member or friend?: No Do you have trouble with day-to-day activities such as bathing, preparing meals, shopping, managing finances, etc.?: No Are you currently unemployed and looking for a job?: No Are you interested in more education?: No Please select the resources that you would like help with: None Currently or been in a relationship where the following occur: No concerns reported THRIVE Score: 0 AUDIT C Alcohol Use Questionnaire (AUDIT-C) 1. How often do you have a drink containing alcohol?: Never 2. How many drinks containing alcohol do you have on a typical day when you are drinking?: 1 or 2 3. How often do you have six or more drinks on one occasion?: Never Total Score: 0 DEEPTHI-7 AMB Questionnaire DEEPTHI-7 Date DEEPTHI - 7 assessed: 10/12/24 Feeling nervous, anxious, or on edge: 1 = Several days Not being able to stop or control worryin = Not at all Worrying too much about different things: 0 = Not at all Trouble relaxin = Not at all Being so restless that it is hard to sit still: 0 = Not at all Becoming easily annoyed or irritable: 0 = Not at all Feeling afraid as if something awful might happen: 0 = Not at all Total DEEPTHI-7 score (0-4 normal; 5-9 mild; 10-14 moderate; 15-21 severe): 1 Source: Developed by Drs. Fernie William, Barbara Do, Sarabjit Armijo and colleagues, with an educational demar from [employer]. Review of Systems Const Denies body aches, Denies fatigue, Denies headache(s) and Denies weakness Eyes Reports no additional complaints ENT Denies dizziness and Denies headache(s) Card Denies chest pain, Denies lightheadedness, Denies palpitations and Denies dyspnea Resp Denies chest congestion and Denies dyspnea GI Denies abdominal pain, Denies change in bowel habits and Denies heartburn Reports no additional complaints Musc Reports no additional complaints Neuro Denies dizziness, Denies headache(s) and Denies weakness Endo Denies fatigue, Denies polydipsia, Denies polyuria and Denies palpitations Aubrey/Lymph Reports no additional complaints Physical exam (Primary Care) Vital Signs: Last Vital Signs Temp 98.0 F 10/12/24 08:12 Pulse 73 10/12/24 08:12 Resp 15 10/12/24 08:12 BP 140/70 H 10/12/24 08:12 Pulse Ox 99 10/12/24 08:12 Oxygen Delivery Method Room Air 10/12/24 08:12 BMI result Body Mass Index 29.1 Tobacco/Smoking Status: Tobacco use Status Tobacco use date assessed 10/12/24 10/12/24 08:13 Patient Tobacco Use Status Never used Tobacco 10/12/24 08:13 e-Cigarette/Vaping Use Never Used 10/12/24 08:13 PHQ-9: PHQ-9 Score PHQ-9: Total score 0 10/12/24 08:30 Depression Screening Interpretation: Negative Thrive Assessment: Date of Thrive Assessment Date Thrive assessed 10/12/24 10/12/24 08:17 Currently or been in a relationship where the following occur: No concerns reported Const General: no acute distress, alert and awake Nutritional Appearance: overweight Orientation/consciousness: patient oriented x3 HENMT Head: Yes normocephalic General nose exam: Normal external nose present and No nasal discharge present Face and sinus: Yes sinuses nontender and Yes face symmetric Eyes General: appearance normal, both eyes and all related structures Neck Neck: Yes full ROM, Yes no lymphadenopathy and Yes supple Resp Auscultation: clear to auscultation bilaterally Cardio Rate: regular rate Rhythm: regular rhythm Heart sounds: S1 normal heart sound present and S2 normal heart sound present GI Palpation (GI): Soft to palpation, nontender, no guarding and no masses Auscultation: normal bowel sounds Skin General skin exam: no rashes or lesions noted Neuro General: patient oriented x3, gait normal, tone normal, moves all extremities, Normal light touch and pain sensation and no focal motor deficits Extrem General: Yes full ROM, Yes no joint enlargement, Yes no clubbing, cyanosis or edema, Yes no calf tenderness and Yes normal gait Results Reviewed Results Reviewed: Name: Suri Cueto Age/Sex: 64/F : 1960 Unit#: [id number] Attend Dr: Michelle Barriga MD Re09/20/24 Status: DEP REF Location: [facility] Disch: SPEC : [id number] ALETHA: 09/20/24 STATUS: COMP REQ : [id number] RECD: 09/20/24-[address]: Michelle Barriga MD COMP: 09/20/24-1059 ENTERED: 09/20/24-[address]: ORDERED: Met Prof Fast, AST, ALT, Lipid Panel, Free T4, TSH Test Result Flag Reference Sodium 139 135-145 mmol/L Potassium 3.7 3.3-5.1 mmol/L CL 108 96-108 mmol/L CO2 24 22-29 mmol/L Gap 11 L 12-20 BUN 13 9-16 mg/dL Creat 0.73 0.5-1.4 mg/dL eGFR > 60 Chronic Kidney Disease: Estimated GFR < 60 mL/min/1.73m2 Severe Kidney Disease: Estimated GFR < 15 mL/min/1.73m2 FBS 115 H 60-99 mg/dL A fasting glucose from 100-125 mg/dl is considered impaired (pre-diabetes). CA 9.0 # 8.4-10.2 mg/dL AST (GOT) 32 H 5-31 U/L ALT (GPT) 23 0-31 U/L Triglyceride 217 H <150 mg/dL Desirable Triglyceride: less than 150 mg/dL Borderline High Triglyceride 150-199 mg/dL High Triglyceride: 200-499 mg/dL Very High Triglyceride: greater than or equal to 5OO mg/dL Cholesterol 202 H <200 mg/dL Desirable Cholesterol: less than 200 mg/dL Borderline High Cholesterol: 200-239 mg/dL High Cholesterol: greater than 239 mg/dL LDL Calculated 115 H <100 mg/dL Desirable LDL: less than 100 mg/dL Near Optimal/Above Optimal LDL: 110-129 mg/dL Borderline High LDL: 130-159 mg/dL High LDL: 160-189 mg/dL Very High LDL: greater than or equal to 190 mg/dL HDL 44 >40 mg/dL Desirable HDL: greater than 40 mg/dL Note: This HDL assay may give artificially low results in patients with liver disease. Free T4 0.92 0.71-1.85 ng/dL TSH 3rd Gen. 2.53 0.32-4.0 uIU/mL Laboratory Tests 09/20/24 06:27 Estimat Average Glucose 140 Hemoglobin A1c % 6.5 H Urine Creatinine 76.41 Urine Microalbumin 33.0 Microalb/Creat Ratio 43.1 H Coding Level of Care Code Est Pt Level 4 (80021) Complex EM visit Add On G2211 Diagnoses Essential hypertension I10 Dyslipidemia E78.5 Type 2 diabetes mellitus without complication, with no history of insulin use E11.9 Immunity status testing Z01.84 Additional Codes PHQ-9 - 52173 - PHQ-9 Billing: Yes ([id number]) Assessment & Plan Assessment & Plan (1) Essential hypertension: Code(s): I10 - Essential (primary) hypertension Category: Medical Plan: Blood pressure not at goal of less than 130/80. Started on losartan 50 mg per tablet taken once a day in a.m... Reinforced importance of following a low sodium diet, getting regular exercise, and lowering stress levels. Repeat another basic metabolic panel, liver enzymes in 4 months. Advised to [place] [address] (2) Dyslipidemia: Code(s): E78.5 - Hyperlipidemia, unspecified Category: Medical Plan: Recent fasting lipids showed elevated triglycerides and LDL cholesterol. Will start on rosuvastatin 5 mg per tablet to take 1 tablet twice a week. Continue with adherence to healthy eating habits and again do regular cardio exercise at least 3 to 4 times a week. (3) Type 2 diabetes mellitus without complication, with no history of insulin use: Code(s): E11.9 - Type 2 diabetes mellitus without complications Category: Medical Plan: Diabetes mellitus not well controlled, with hemoglobin A1c now at 6.5%, will start on metformin ER 500 mg per tablet to take 1 tablet at night with supper time. Adherence to healthy diet and getting regular exercise strongly recommended. Reminded patient to get her yearly eye screening to check for diabetes retinopathy. (4) Immunity status testing: Code(s): Z01.84 - Encounter for antibody response examination Category: Medical Plan: MMR IgG titer ordered Orders: Orders MMR IgG Measles Mumps Rubella 02/01/25 E11.9 - Type 2 diabetes mellitus without complications, E78.5 - Hyperlipidemia, unspecified, I10 - Essential (primary) hypertension Hemoglobin A1c 02/01/25 E11.9 - Type 2 diabetes mellitus without complications, E78.5 - Hyperlipidemia, unspecified, I10 - Essential (primary) hypertension Alanine Aminotransferase 02/01/25 E11.9 - Type 2 diabetes mellitus without complications, E78.5 - Hyperlipidemia, unspecified, I10 - Essential (primary) hypertension Aspartate Amino Transferase 02/01/25 E11.9 - Type 2 diabetes mellitus without complications, E78.5 - Hyperlipidemia, unspecified, I10 - Essential (primary) hypertension Basic Metabolic Panel Fasting 02/01/25 E11.9 - Type 2 diabetes mellitus without complications, E78.5 - Hyperlipidemia, unspecified, I10 - Essential (primary) hypertension Lipid Panel 02/01/25 E11.9 - Type 2 diabetes mellitus without complications, E78.5 - Hyperlipidemia, unspecified, I10 - Essential (primary) hypertension Medications: New metformin ER 500 mg PO QPM 90 tabs 2RF rosuvastatin 5 mg PO Q2W 7 tabs 2RF 3 months Changed From losartan 25 mg PO DAILY 90 tabs 1RF To losartan 50 mg PO DAILY 90 tabs 2RF
--- OUTSIDE RECORDS SUMMARY | 2024-10-12 08:37 | XMS_ITS | Data Portability ---
Author Organization [facility] Address [address] [place] [address] Assessment No assessment recorded. Plan of Treatment Reminders Order Date Submit Date Provider Last Modified By Organization Details Last Modified Time Details Appointments None record ed. Lab None record ed. Referral None record ed. Procedures None record ed. Surgeries None record ed. Imaging None record ed. Medication Orders None record ed. Patient TargetsNo targets recorded. Patient InstructionsNo instructions recorded. Reason for Referral None Reported. Medical Equipment None Reported. Vitals None Recorded Social History None recorded. Functional Status None recorded. Mental Status None recorded. Family History Nothing Reported. Medical History No medical history recorded. Gynecological HistoryNo gynecological history recorded. Obstetrics History GPAL:G 0 P 0 0 0 0 Past Encounters Encounter ID Performer Location Encounter Start Date Encounter Closed Date Diagnosis/Indication Diagnosis SNOMED-CT Code Diagnosis ICD10 Code Diagnosis Note [id number] [address] 08/10/2021 17:22:18 08/10/2021 19:24:05 [id number] [address] [address] 04/21/2020 10:24:44 04/21/2020 10:58:04 Health Concerns Section Related Observation LastModified by Organization Detai ls LastModified Time None Recorded Concern Status LastModified by Organization Details LastModified Time None Recorded Advance Directives Directive None Recorded Payers None recorded. OBGyn Episode No OBEpisode recorded.
== END 2024-10-12 08:59 | disposition home or self-care (01) ==
LOC: HO.HMCC 08:09
PROVIDERS: PCP Internal Medicine; Visit Provider Internal Medicine
DX: I10 Essential (primary) hypertension (principal); E78.5 Hyperlipidemia, unspecified; E11.9 Type 2 diabetes mellitus without complications; Z01.84 Encounter for antibody response examination

== ENCOUNTER → 2024-10-12 08:09 | Outpatient (BNVA) | payer BC, SELFPAY | PROVIDERS: PCP Internal Medicine; Visit Provider Internal Medicine | DX: I10 Essential (primary) hypertension (principal); E78.5 Hyperlipidemia, unspecified; E11.9 Type 2 diabetes mellitus without complications; Z01.84 Encounter for antibody response examination | CPT/HCPCS: 96127 ==

== ENCOUNTER 2025-03-04 06:58 | Outpatient (REF) | payer BC, SELFPAY ==
[2025-03-04 11:53] LABS: Alanine Aminotransferase 21 U/L (0-31); Anion Gap 11 (12-20); Aspartate Amino Transferase 29 U/L (5-31); Blood Urea Nitrogen 16 mg/dL (9-16); Calcium 9.0 mg/dL (8.4-10.2); Carbon Dioxide 26 mmol/L (22-29); Chloride 108 mmol/L (96-108); Cholesterol 226 mg/dL (<200); Estimated Glomerular Filt Rate > 60; HDL Cholesterol 51 mg/dL (>40); Potassium 4.2 mmol/L (3.3-5.1); Sodium 141 mmol/L (135-145); Triglycerides 115 mg/dL (<150)
[2025-03-04 12:36] LABS: Hemoglobin A1C 153.1221 umol/L; Total Hemoglobin (HGBA1C) 3314.4140 umol/L
[2025-03-07 20:38] LABS: Rubeola IgG (Measles) 164.00 AU/mL
== END 2025-03-04 06:59 | disposition home or self-care (01) ==
LOC: HO.HMGCLDS 06:58
PROVIDERS: PCP Internal Medicine; Visit Provider Internal Medicine
DX: E11.9 Type 2 diabetes mellitus without complications (principal); E78.5 Hyperlipidemia, unspecified; I10 Essential (primary) hypertension; Z01.84 Encounter for antibody response examination; R53.83 Other fatigue; R42 Dizziness and giddiness
CPT/HCPCS: 36415; 80048; 80061; 83036; 84450; 84460; 86735; 86762; 86765